=== PATIENT | male | born 1985 | race Caucasian/White ===

== ENCOUNTER 2016-09-27 11:26 | Inpatient (IN) | payer MEDICAID, OTHER ==
[~2016-09-27] VITALS: Ht 167.6 cm; Wt 124.5 kg
[~2016-09-27 11:26] MED LIST: ABIL10TA; ABIL15TA PO; ABIL2TAB; COGE1INJ; KLON0.5T; KLON1TAB; PROZ20CA; PROZ40CA; RISPERDAL CONSTA; TRAZ50TA; WELL150T PO; ZYPR15TA; ZYPR5TAB
[2016-09-27] MEDS ORDERED: ABIL30TA PO (11:39)
[2016-09-27] MEDS ORDERED: PARO20TA2 PO (11:39)
[2016-09-27] MEDS ORDERED: KEPP500T5 PO (11:39)
[2016-09-27 12:41] LABS: MEAN CORPUSCULAR HEMOGLOBIN 29.2 pg (27.0-33.0); MEAN CORPUSCULAR HGB CONC 33.8 g/dl (32.0-36.5); MEAN CORPUSCULAR VOLUME 86.4 fl (80.0-96.0); RED CELL DISTRIBUTION WIDTH 12.5 % (11.5-14.5); WHITE BLOOD COUNT 6.9 K/mm3 (4.0-10.0)
[2016-09-27 13:05] LABS: ALBUMIN 4.2 GM/DL (3.2-5.2); ALBUMIN/GLOBULIN RATIO 1.14 (1.00-1.93); ALKALINE PHOSPHATASE 125 U/L (45-117); ALT/SGPT 68 U/L (12-78); ANION GAP 11 MEQ/L (8-16); AST/SGOT 30 U/L (15-37); BILIRUBIN,DIRECT < 0.1 MG/DL (0.0-0.2); BILIRUBIN,TOTAL 0.4 MG/DL (0.2-1.0); BLOOD UREA NITROGEN 8 MG/DL (7-18); CALCIUM LEVEL 9.1 MG/DL (8.5-10.1); CARBON DIOXIDE LEVEL 26 MEQ/L (21-32); CHLORIDE LEVEL 104 MEQ/L (98-107); CREATININE FOR GFR 0.82 MG/DL (0.70-1.30); GLOMERULAR FILTRATION RATE > 60.0 (>60); GLUCOSE, FASTING 89 MG/DL (70-105); POTASSIUM SERUM 4.2 MEQ/L (3.5-5.1); SODIUM LEVEL 141 MEQ/L (136-145); TOTAL PROTEIN 7.9 GM/DL (6.4-8.2)
[2016-09-27 15:00] LABS: METHADONE URINE NEGATIVE (NEGATIVE)
[2016-09-27] MEDS ORDERED: KEPP1000 PO (16:00)
[2016-09-27 16:06] VITALS: BP 136/87
[2016-09-27] MEDS ORDERED: MAALOX 30 ML SUSP *UDC PO PRN (17:00)
[2016-09-27] MEDS ORDERED: traZODone 50 MG TAB PO PRN (17:00)
[2016-09-27] MEDS ORDERED: MOM 30ML SUSPENSION UDC PO PRN (17:00)
[2016-09-27] MEDS ORDERED: ACETAMINOPHEN TAB 650MG DOSE (2X325MG) PO PRN (17:00)
[2016-09-27] MEDS: levETIRAcetam **XR** 500 MG TABLET PO SCH (20:56)
[2016-09-28 06:33] VITALS: BP 135/76
[2016-09-28] MEDS: levETIRAcetam **XR** 500 MG TABLET PO SCH ×2 (09:23→21:00)
[2016-09-28] MEDS: ARIPiprazole 10 MG TAB PO SCH (09:23)
[2016-09-28] MEDS: PARoxetine 10MG TABLET PO SCH (09:24)
--- NOTE | 2016-09-28 13:52 | ECGEPIP ---
Stationary ECG Study [facility] Test Date: 2016-09-28 Pat Name: BRITTANI LOU Department: Room: [place] [address] Gender: M Production Leader: LUZ MRAIA : 1985 Requested By: Dana Erwin [facility] Order Number: [id number] Reading MD: Dickson Malloy Measurements Intervals [place] Rate: 81 P: 27 SD: 162 QRS: 46 QRSD: 105 T: 6 QT: 340 QTc: 395 Interpretive Statements Normal sinus rhythm at [address]/T-wave abnormalities. New from tracing in 08/22/11. Clinical correlation advised Electronically Signed On 09-28-2016 13:52:38 EDT by Dickson Malloy
[2016-09-28 18:00] VITALS: BP 142/73
--- NOTE | 2016-09-28 20:39 | HPE ---
DATE OF ADMISSION: 09/27/2016 Please refer to psychiatric history and evaluation for further details on this admission. This examination and history is intended for medical issues which may need treatment, followup or consult on this 30-year-old male. ALLERGIES: No known allergies. SOCIAL HISTORY: He is single, lives with his mother, stepfather and brother. EtOH: None. Smokes: None. Recreational drug use: He states none. PAST MEDICAL HISTORY: Schizophrenia. PAST SURGICAL HISTORY: 1. Plate in his head secondary to a traumatic injury. 2. He had open reduction with internal fixation and healed fracture of the lateral wall of the right orbit. LABORATORY STUDIES: CBC was normal. Electrolytes were normal. BUN and creatinine were 8 and 0.82. Toxicology was negative. HOME MEDICATIONS: - Abilify 30 mg by mouth daily - Keppra 1000 mg by mouth twice a day - Paxil 20 mg by mouth daily REVIEW OF SYSTEMS: Essentially negative. He had no complaints, was feeling well. PHYSICAL EXAMINATION: A 30-year-old obese cooperative male in no acute distress. Height 66 inches, weight 124 kg, body mass index (BMI) 44.3 kg. Temperature 98.6, pulse 95, respirations 16, blood pressure 136/87. Patient is alert and oriented times three. HEENT: Pupils equal and react to light. Extraocular muscles intact. Cornea and sclerae clear. Conjunctivae normal. No facial asymmetry. Pharynx, tongue, and gums pink and moist. Tongue is midline. NECK: Supple, without lymphadenopathy. No thyromegaly. No goiter. Carotids with a soft bruit CHEST: Clear to auscultation, without wheeze or retraction. HEART: Regular. ABDOMEN: Benign. Bowel sounds positive. /RECTAL: Not done. EXTREMITIES: Show equal strength. Full range of motion. No cyanosis, clubbing or edema. Negative Romberg study. Peripheral pulses even and palpable bilaterally. SKIN: Warm and dry. IMPRESSION/PLAN: 1. Psychiatric clearance for psychiatry. 2. No acute medical issues.
[2016-09-29 06:36] VITALS: BP 130/64
[2016-09-29] MEDS: PARoxetine 10MG TABLET PO SCH (07:43)
[2016-09-29] MEDS: ARIPiprazole 10 MG TAB PO SCH (07:43)
[2016-09-29] MEDS: levETIRAcetam **XR** 500 MG TABLET PO SCH ×2 (07:45→21:03)
--- NOTE | 2016-09-29 08:18 | MHHPE ---
DATE OF ADMISSION: 09/28/2016 Mr. Ortiz is a 31-year-old male who admitted himself based on the fact that he has not been feeling well. He feels he has been under stress at home. He has been arguing with his mother. He has felt a sense of dizziness and a sense of disorientation. He states that these are symptoms that precipitate or let him know that perhaps he may be having a break of schizophrenia. He states part of the stress has always been the fact that his uncle Dmitri, who is 60 years old, lives with the family and has been known to cause some stress in the past. He spent three years in their house. MEDICATIONS: The patient has been treated by Ms. Stringer at the [facility] in [facility] and been treated with Abilify 30 mg and Paxil 15 mg. He feels these medications have been adequate. He has not had any visual or auditory hallucinations with this treatment. NEUROLOGICAL HISTORY: He has had a long history of seizures, clonic tonic, as well as partial seizures since age 2. He is presently on Keppra and states that his seizures are controlled. He has been taking his medications faithfully and has been out of the hospital for five years. He has rated his mood yesterday as less than today and it is improving. PAST MEDICATIONS: He has used Zyprexa, Klonopin and Neurontin. EDUCATION: He has a college education of some years at [employer]. PSYCHIATRIC HISTORY: The patient states that since his early 20s he has had psychiatric problems; but when he was younger, he was known to have learning problems. Medical history has been positive for seizures. LEGAL HISTORY: Negative. DRUG HISTORY: Negative. ALCOHOL HISTORY: Negative. He presently is denying hallucinations or delusions, obsessions, compulsions and phobias. He has expressed some anxiety and depression. His eye contact is good. His appearance is appropriate. His speech is of normal volume and articulation. Affect is bright. His memory is good. Orientation is full in three spheres. No loose association. He denies suicidal or homicidal ideation and judgment is good. IMPRESSION: Chronic schizophrenia. PLAN: Will observe the patient to see if any medication changes are needed and may recommend as per the patient's request the possibility of a temporary living situation.
[2016-09-29 18:00] VITALS: BP 148/84
--- NOTE | 2016-09-30 03:24 | IPN ---
DATE: 09/27/2016 Rakesh Ortiz was seen by me today. He continued to perform rather excellent card tricks for me. His mood was good. His affect was bright. We agree with him that his home environment is too stressful and cause him to recurrence. He does not see a need for an increase in medication today. MENTAL STATUS EXAMINATION: His appearance is appropriate. Eye contact is good. His speech is of normal volume. Mood is good. Affect is pleasant. He has not yet developed hallucinations or delusions, but knows when he is about to, which initiated this admission. Memory is good. Orientation is in three spheres. He has no loose associations and he is presently denying suicidal or homicidal ideation, but has still continued paranoia and judgment is fair. ASSESSMENT: The patient is chronic schizophrenic, recurrent and placement to a different environment will be initiated. Presently, the patient is on Abilify 30 mg by mouth daily and Paxil 15 mg daily. I will increase his Paxil to 20 mg based on his severe anxiety.
[2016-09-30 06:26] VITALS: BP 111/58
[2016-09-30] MEDS: ARIPiprazole 10 MG TAB PO SCH (09:39)
[2016-09-30] MEDS: PARoxetine 20 MG TAB PO SCH (09:39)
[2016-09-30] MEDS: levETIRAcetam **XR** 500 MG TABLET PO SCH ×2 (09:39→20:03)
--- NOTE | 2016-09-30 11:01 | IPN ---
DATE: 09/30/2016 Rakesh Ortiz is seen by me today. Continues to perform card tricks. His mood is good. His affect is bright. He wanted an opinion on whether he was correct to seek independent placement. He said he could do it if "someone looked in on me". He continued to report that his home environment was too stressful and caused him to worry about recurrence. He does not see a need for increased medication today. MENTAL STATUS EXAMINATION: His appearance is appropriate. His eye contact was good. His speech is of normal volume. His mood is good. His affect is pleasant. He has not yet developed hallucinations or delusions but knows when he is about to which initiated this admission. His memory is good. He continues oriented in free spirits. He has no loose associations and is presently denying suicidal or homicidal ideation. His judgment is fair with some continued paranoia. ASSESSMENT: Patient is chronic schizophrenic and placement to different environment will be initiated. Patient is presently on Abilify 30 mg by mouth daily and Paxil 15 mg daily. We will increase his Paxil to 20 mg based on his anxiety. DIAGNOSIS: Chronic schizophrenia, recurrent. MTDD
[2016-09-30 18:00] VITALS: BP 116/54
[2016-10-01 06:26] VITALS: BP 136/61
[2016-10-01] MEDS: ARIPiprazole 10 MG TAB PO SCH (08:48)
[2016-10-01] MEDS: levETIRAcetam **XR** 500 MG TABLET PO SCH ×2 (08:48→21:27)
[2016-10-01] MEDS: PARoxetine 20 MG TAB PO SCH (08:48)
--- NOTE | 2016-10-01 13:53 | IPN ---
DATE OF SERVICE: 10/01/2016 Rakesh Ortiz is a chronic schizophrenic who was on the verge of a recurrence of his psychosis. He has had some improvement in being on the unit, and it is our opinion, along with him, that perhaps he needs to live in less stressful environment. Discharge planning will be discussing this with his family. He has reported that his home environment is too stressful, and it may cause him a recurrence. MENTAL STATUS EXAMINATION: His appearance is appropriate. His eye contact was good. His speech was of normal volume. His mood was good. His affect was pleasant. He is not presently hallucinating or delusional but knows when that is possible and thinks that it is due to the stress at home. His memory is good. He continues oriented in three spheres. He has no loose association and is presently denying suicidal or homicidal ideation. His judgment is fair with some continued paranoia. ASSESSMENT: The patient is chronic schizophrenic and discussion of placement to different environment will be initiated. The patient is presently on Abilify 30 mg by mouth and Paxil 15 mg daily.
[2016-10-01 18:00] VITALS: BP 136/73
[2016-10-02 06:11] VITALS: BP 114/69
[2016-10-02] MEDS: PARoxetine 20 MG TAB PO SCH (08:32)
[2016-10-02] MEDS: ARIPiprazole 10 MG TAB PO SCH (08:32)
[2016-10-02] MEDS: levETIRAcetam **XR** 500 MG TABLET PO SCH ×2 (08:32→20:48)
--- NOTE | 2016-10-02 08:49 | IPN ---
DATE: 10/02/2016 Mr. Ortiz was seen today. His mood is fair. Affect pleasant. Patient has met with discharge planning to review the possibility of living independently. I will be discussing discharge planning whether in fact they have also spoken with the family. Patient is a chronic schizophrenic who was under stress and was beginning to feel symptoms of relapse. Those feelings were a sense of disorientation and confusion. MENTAL STATUS EXAMINATION: Patient had somewhat stuttered speech. Thought processes were normal. There are no loose associations. He had been feeling prodromal symptoms of psychosis. Judgment and insight were good. Patient was fully oriented with no difficulties with recent and remote memory. Attention and concentration were good. Language demonstrated no abnormalities. He had full fund of knowledge and mood was fair. Affect was neutral. DIAGNOSIS: Chronic schizophrenia. PLAN: Continue medication and seek independent living. ESTEBAN
[2016-10-02 18:24] VITALS: BP 133/76
[2016-10-03 06:27] VITALS: BP 148/75
[2016-10-03] MEDS: PARoxetine 20 MG TAB PO SCH (08:29)
[2016-10-03] MEDS: ARIPiprazole 10 MG TAB PO SCH (08:29)
[2016-10-03] MEDS: levETIRAcetam **XR** 500 MG TABLET PO SCH ×2 (08:29→20:23)
--- NOTE | 2016-10-03 15:18 | IPN ---
DATE: 10/03/2016 Mr. Ortiz was seen today. His mood is fair. Affect pleasant. The patient will be meeting with family and having a referral to Transitional Living concerning him living independently. The patient is chronic schizophrenic who is under stress due to living environment at home and was beginning to feel symptoms of relapse. He had felt disoriented and confused. MENTAL STATUS EXAM: The patient has somewhat stuttered speech. Thought process was normal. No loose associations were noted. Prodromal symptoms of psychosis have relieved. Judgment and insight are good. The patient is fully oriented. No difficulty with recent or remote memory. Concentration good. Language demonstrated no abnormalities. He had full fund of knowledge. His mood was fair. His affect was neutral. MEDICATIONS: His present medication are paroxetine HCL 20 mg and Abilify 30 mg daily. DIAGNOSIS: Chronic schizophrenia. PLAN: Discharge to home with referrals for independent living.
[2016-10-03 18:00] VITALS: BP 135/65
[2016-10-03] MEDS ORDERED: PARO20TA2 PO (18:59)
[2016-10-03] MEDS ORDERED: ARIP10TAB PO (18:59)
[2016-10-03] MEDS ORDERED: TRAZO50TA PO (18:59)
[2016-10-04 06:15] VITALS: BP 131/87
[2016-10-04] MEDS: ARIPiprazole 10 MG TAB PO SCH (08:08)
[2016-10-04] MEDS: PARoxetine 20 MG TAB PO SCH (08:08)
[2016-10-04] MEDS: levETIRAcetam **XR** 500 MG TABLET PO SCH (08:08)
--- NOTE | 2016-10-04 10:11 | MHDS ---
DATE OF ADMISSION: 09/27/2016 DATE OF DISCHARGE: Mr. Ortiz is a 31-year-old male who admitted himself based on the fact that he has not been feeling well. He feels that he has been under stress at home. He has been arguing with his mother and his Uncle Dmitri, who lives at home. The patient has a history of chronic schizophrenia and was able to identify what he considered a prodromal symptoms to his having a psychotic break. He felt a sense of dizziness, a sense of disorientation. He felt that these were symptoms that precipitate or let him know that he may be having a recurrence of schizophrenia symptoms. He states that part of his stress has always been the fact that Uncle Dmitri, who is 60 years old lives with his family and this causes stress in the house. Uncle Dmitri was supposed to leave and has not. MEDICATIONS: The patient has been treated by Mrs. RennerQueen in the [facility] and has been treated with Abilify 30 mg and Paxil 15 mg. The patient feels that these medications have been adequate. He is not presently having visual or auditory hallucinations. Neurological history, he has a long history of seizures, clonic and tonic, as well as partial seizures since age 2. He is presently on Keppra and states that his seizures are controlled. He has been taking his medications faithfully and has been out of the hospital for 5 years. He rated his mood yesterday as low at 3 to 4 out of 10. In the past, he has used Zyprexa, Klonopin, and Neurontin. He has a college education with some years at [employer]. PSYCHIATRIC HISTORY: The patient states that since his early 20s he had psychiatric problems and had learning problems when he was younger. MEDICAL HISTORY: Positive for seizures. LEGAL HISTORY: Negative. DRUG HISTORY: Negative. ALCOHOL HISTORY: Negative. The patient was seen on 09/27/2016 and continued to perform card tricks. His mood seemed to improve and we agreed that if he felt that his home environment was too stressful that a referral to Transitional Living should be part of his treatment plan. On 09/30/2016, the patient stated that he felt that he could live in independent living if someone looked in on him. He saw no need for increased medication at that time. Discharge planning arranged a family meeting. He continued to have fair mood with a pleasant affect, and his medications continued at Abilify 30 mg. I increased his Paxil to 20 mg due to his anxiety from his usual 15 mg. His CBC was within normal range. There were no significant abnormalities in his serum chemistry. His toxicology screen was negative. DISCHARGE PLAN: He will be discharged to home with followup at [facility]. DISCHARGE DIAGNOSIS: Chronic schizophrenia. He will be followed up at the [facility].
== END 2016-10-04 12:10 | disposition home or self-care (01) | DRG 750 ==
LOC: M ED 13:20 → M ED INP 15:18 → M PSY 16:00
PROVIDERS: ADMIT Psychiatry & Neurology Child & Adolescent Psychiatry; ATTEND Psychiatry & Neurology Child & Adolescent Psychiatry
DX: F20.5 Residual schizophrenia (principal); Z79.899 Other long term (current) drug therapy; E66.9 Obesity, unspecified; Z68.41 Body mass index [BMI] 40.0-44.9, adult

== ENCOUNTER → 2016-11-21 | Outpatient (REF) | payer OTHER ==
[~2016-11-21] MED LIST changes: +ABIL30TA PO; +ARIP10TAB PO; +KEPP1000 PO; +KEPP500T5 PO; +PARO20TA3 PO; +TRAZO50TA PO
== END ==
LOC: M LABDRAWC 16:15
PROVIDERS: ATTEND Physician Assistant Medical
DX: G40.909 Epilepsy, unspecified, not intractable, without status epilepticus (principal)

== ENCOUNTER → 2017-07-24 | Outpatient (REF) | payer OTHER, MEDICAID ==
[2017-07-28 14:11] LABS: LEVETIRACETAM (KEPPRA) 30.6 ug/mL (10.0-40.0)
== END ==
LOC: M LABDRAWC 18:29
DX: G40.909 Epilepsy, unspecified, not intractable, without status epilepticus (principal)

== ENCOUNTER → 2017-12-16 | Outpatient (REF) | payer OTHER, MEDICAID ==
[2017-12-20 00:09] LABS: LEVETIRACETAM (KEPPRA) 26.4 ug/mL (10.0-40.0)
== END ==
LOC: M LABDRAWC 17:32
DX: R56.9 Unspecified convulsions (principal)
CPT/HCPCS: 36415

== ENCOUNTER → 2018-03-23 | Outpatient (REF) | payer OTHER, MEDICAID ==
[2018-03-23 20:50] LABS: TOTAL 25(OH) VITAMIN D 24.6 NG/ML (30.0-100.0)
[2018-03-23 23:16] LABS: ALBUMIN 4.3 GM/DL (3.2-5.2); ANION GAP 12 MEQ/L (8-16); BLOOD UREA NITROGEN 7 MG/DL (7-18); CALCIUM LEVEL 9.2 MG/DL (8.5-10.1); CARBON DIOXIDE LEVEL 23 MEQ/L (21-32); CHLORIDE LEVEL 104 MEQ/L (98-107); CREATININE FOR GFR 0.93 MG/DL (0.70-1.30); GLOMERULAR FILTRATION RATE > 60.0 (>60); GLUCOSE, FASTING 101 MG/DL (70-100); PHOSPHORUS LEVEL 2.7 MG/DL (2.5-4.9); POTASSIUM SERUM 4.1 MEQ/L (3.5-5.1); SODIUM LEVEL 139 MEQ/L (136-145); THYROXINE (T4) 7.8 UG/DL (4.5-12.0); TRIGLYCERIDES LEVEL 225 MG/DL (<150)
[2018-03-24 00:54] LABS: CHOLESTEROL LEVEL 214 MG/DL (<200); CHOLESTEROL RISK RATIO 5.219 (<5); HDL CHOLESTEROL 41 MG/DL (>40); NON-HDL-C 173 MG/DL
[2018-03-24 00:55] LABS: LDL CHOLESTEROL 128 MG/DL (<100)
[2018-03-24 01:37] LABS: ESTIMATED AVERAGE GLUCOSE 105 MG/DL (60-110); HEMOGLOBIN A1c 5.3 %
== END ==
LOC: M LABDRAWC 17:53
DX: Z51.81 Encounter for therapeutic drug level monitoring (principal); Z79.899 Other long term (current) drug therapy; E55.9 Vitamin D deficiency, unspecified; E03.3 Postinfectious hypothyroidism
CPT/HCPCS: 84443

== ENCOUNTER → 2018-06-11 | Outpatient (REF) | payer OTHER, MEDICAID ==
[2018-06-17 00:07] LABS: LEVETIRACETAM (KEPPRA) 20.9 ug/mL (10.0-40.0)
== END ==
LOC: M LABDRAWC 16:14
DX: R56.9 Unspecified convulsions (principal)
CPT/HCPCS: 80180

== ENCOUNTER → 2019-02-16 | Outpatient (REF) | payer OTHER, MEDICAID ==
[~2019-02-16] MED LIST changes: -ABIL30TA PO; +ABIL30TA4 PO; -ARIP10TAB PO; +ARIP1TAB PO; -KEPP1000 PO; +KEPP10002 PO; +KEPP500T13 PO; -KEPP500T5 PO; +TRAZ1TAB10 PO; -TRAZO50TA PO
[2019-02-16 16:55] LABS: CHOLESTEROL RISK RATIO 5.025 (<5)
[2019-02-16 17:57] LABS: HEMOGLOBIN A1c 5.8 %
== END ==
LOC: M LABDRAWC 16:05
PROVIDERS: ATTEND Nurse Practitioner Psychiatric/Mental Health
DX: Z79.899 Other long term (current) drug therapy (principal)

== ENCOUNTER → 2019-08-11 | Outpatient (REF) | payer OTHER, MEDICAID | LOC: M LABDRAWC 17:19 | PROVIDERS: ATTEND Physician Assistant Medical | DX: R56.9 Unspecified convulsions (principal) ==

== ENCOUNTER → 2019-12-21 | Outpatient (REF) | payer OTHER | LOC: M LABDRAWC 16:16 | PROVIDERS: ATTEND Physician Assistant Medical | DX: G40.909 Epilepsy, unspecified, not intractable, without status epilepticus (principal) ==

== ENCOUNTER → 2020-06-01 | Outpatient (REF) | payer MEDICAID ==
[2020-06-01 16:14] LABS: ALBUMIN 4.2 GM/DL (3.2-5.2); ALT/SGPT 96 U/L (12-78); BILIRUBIN,TOTAL 0.4 MG/DL (0.2-1.0); BLOOD UREA NITROGEN 7 MG/DL (7-18); CALCIUM LEVEL 9.3 MG/DL (8.5-10.1); CARBON DIOXIDE LEVEL 28 MEQ/L (21-32); CHLORIDE LEVEL 106 MEQ/L (98-107); CHOLESTEROL LEVEL 144 MG/DL (<200); CREATININE FOR GFR 0.93 MG/DL (0.70-1.30); GLOMERULAR FILTRATION RATE > 60.0 (>60); GLUCOSE, FASTING 87 MG/DL (70-100); HDL CHOLESTEROL 40 MG/DL (>40); LDL CHOLESTEROL 89 MG/DL (<100); NON-HDL-C 104 MG/DL; POTASSIUM SERUM 3.8 MEQ/L (3.5-5.1); SODIUM LEVEL 140 MEQ/L (136-145); TOTAL PROTEIN 7.5 GM/DL (6.4-8.2); TRIGLYCERIDES LEVEL 74 MG/DL (<150)
[2020-06-01 16:49] LABS: HEMOGLOBIN A1c 5.3 %
== END ==
LOC: M SFHCCLAY 10:02
PROVIDERS: ATTEND Family Medicine
DX: Z00.00 Encounter for general adult medical examination without abnormal findings (principal); R73.01 Impaired fasting glucose; Z79.899 Other long term (current) drug therapy; Z13.220 Encounter for screening for lipoid disorders

== ENCOUNTER → 2020-11-20 | Outpatient (REF) | payer MEDICAID, OTHER | LOC: M LABDRAWC 11:52 | PROVIDERS: ATTEND Physician Assistant Medical | DX: G40.909 Epilepsy, unspecified, not intractable, without status epilepticus (principal) ==

== ENCOUNTER → 2021-05-31 | Outpatient (REF) | payer OTHER | LOC: M LABDRAWC 15:30 | PROVIDERS: ATTEND Physician Assistant Medical | DX: G40.909 Epilepsy, unspecified, not intractable, without status epilepticus (principal) ==

== ENCOUNTER → 2021-07-03 | Outpatient (REF) | payer OTHER ==
[2021-07-03 16:11] LABS: BASO # 0.1 10^3/uL (0.0-0.2); BASO % 0.6 % (0.0-1.0); EOS # 0.2 10^3/uL (0.0-0.5); EOS % 1.8 % (0.0-3.0); HEMATOCRIT 49.3 % (42.0-52.0); LYMPH # 2.8 10^3/uL (1.5-5.0); MEAN CORPUSCULAR HEMOGLOBIN 29.1 pg (27.0-33.0); MEAN CORPUSCULAR HGB CONC 32.5 g/dl (32.0-36.5); MEAN CORPUSCULAR VOLUME 89.8 fl (80.0-96.0); MONO # 0.6 10^3/uL (0.0-0.8); MONO % 6.8 % (2.0-8.0); NEUTROPHILS # 4.6 10^3/uL (1.5-8.5); NEUTROPHILS % 56.3 % (36.0-66.0); PLATELET COUNT, AUTOMATED 330 10^3/uL (150-450); RED BLOOD COUNT 5.49 10^6/uL (4.30-6.10); WHITE BLOOD COUNT 8.2 10^3/uL (4.0-10.0)
[2021-07-03 16:46] LABS: ALBUMIN 4.2 GM/DL (3.2-5.2); ALT/SGPT 44 U/L (12-78); BILIRUBIN,TOTAL 0.4 MG/DL (0.2-1.0); BLOOD UREA NITROGEN 14 MG/DL (7-18); CALCIUM LEVEL 9.5 MG/DL (8.5-10.1); CARBON DIOXIDE LEVEL 31 MEQ/L (21-32); CHLORIDE LEVEL 105 MEQ/L (98-107); CREATININE FOR GFR 0.84 MG/DL (0.70-1.30); GLOMERULAR FILTRATION RATE > 60.0 (>60); GLUCOSE, FASTING 84 MG/DL (70-100); SODIUM LEVEL 138 MEQ/L (136-145); TOTAL PROTEIN 7.9 GM/DL (6.4-8.2)
== END ==
LOC: M LABDRAWC 15:46
PROVIDERS: ATTEND Physician Assistant Medical
DX: G40.909 Epilepsy, unspecified, not intractable, without status epilepticus (principal)

== ENCOUNTER → 2021-08-14 | Outpatient (REF) | payer OTHER | LOC: M SFHCCLAY 11:58 | PROVIDERS: ATTEND Family Medicine | DX: R73.03 Prediabetes (principal); Z79.899 Other long term (current) drug therapy ==

== ENCOUNTER → 2022-03-19 | Outpatient (REF) | payer OTHER ==
[2022-03-19 17:38] LABS: HEMATOCRIT 47.8 % (42.0-52.0); HEMOGLOBIN 15.6 g/dl (13.5-17.5); MEAN CORPUSCULAR HEMOGLOBIN 29.4 pg (27.0-33.0); MEAN CORPUSCULAR HGB CONC 32.6 g/dl (32.0-36.5); PLATELET COUNT, AUTOMATED 336 10^3/uL (150-450); RED BLOOD COUNT 5.31 10^6/uL (4.30-6.10); WHITE BLOOD COUNT 8.3 10^3/uL (4.0-10.0)
[2022-03-19 18:31] LABS: BLOOD UREA NITROGEN 9 MG/DL (7-18); CALCIUM LEVEL 9.2 MG/DL (8.5-10.1); CARBON DIOXIDE LEVEL 29 MEQ/L (21-32); CHLORIDE LEVEL 102 MEQ/L (98-107); CREATININE FOR GFR 0.82 MG/DL (0.70-1.30); GLOMERULAR FILTRATION RATE > 60.0 (>60); GLUCOSE, FASTING 82 MG/DL (70-100); POTASSIUM SERUM 4.4 MEQ/L (3.5-5.1); SODIUM LEVEL 135 MEQ/L (136-145)
== END ==
LOC: M SFHCCLAY 11:25
PROVIDERS: ATTEND Nurse Practitioner Family
DX: K92.1 Melena (principal)

== ENCOUNTER 2022-09-12 12:51 | Inpatient (IN) | payer MEDICAID, OTHER ==
[~2022-09-12] VITALS: Ht 167.6 cm; Wt 135.0 kg
[2022-09-12 14:31] LABS: HEMATOCRIT 47.5 % (42.0-52.0); HEMOGLOBIN 15.9 g/dl (13.5-17.5); MEAN CORPUSCULAR HEMOGLOBIN 29.5 pg (27.0-33.0); MEAN CORPUSCULAR HGB CONC 33.5 g/dl (32.0-36.5); MEAN CORPUSCULAR VOLUME 88.1 fl (80.0-96.0); PLATELET COUNT, AUTOMATED 341 10^3/uL (150-450); RED BLOOD COUNT 5.39 10^6/uL (4.30-6.10); WHITE BLOOD COUNT 10.7 10^3/uL (4.0-10.0)
[2022-09-12 15:01] LABS: ETHYL ALCOHOL (ETHANOL) 0.005 % (0.000-0.010)
[2022-09-12 15:02] LABS: ACETAMINOPHEN LEVEL < 2.0 UG/ML (10.0-20.0)
[2022-09-12 15:03] LABS: SALICYLATE LEVEL < 3.0 MG/DL (<30)
[2022-09-12 15:07] LABS: ALBUMIN 4.4 G/DL (3.2-5.2); ALKALINE PHOSPHATASE 98 U/L (46-116); ALT/SGPT 56 U/L (7.0-40); AST/SGOT 28 U/L (<34); BILIRUBIN,DIRECT 0.2 MG/DL (<0.4); BILIRUBIN,TOTAL 0.6 MG/DL (0.3-1.2); BLOOD UREA NITROGEN 9 MG/DL (9-23); CALCIUM LEVEL 9.3 MG/DL (8.5-10.1); CARBON DIOXIDE LEVEL 27 MMOL/L (20-31); CHLORIDE LEVEL 102 MMOL/L (98-107); CREATININE FOR GFR 0.69 MG/DL (0.70-1.30); GLOMERULAR FILTRATION RATE > 60.0 (>60); GLUCOSE, FASTING 95 MG/DL (60-100); POTASSIUM SERUM 4.6 MMOL/L (3.5-5.1); SODIUM LEVEL 139 MMOL/L (136-145); THYROID STIMULATING HORMONE 1.977 uIU/ML (0.55-4.78); TOTAL PROTEIN 7.9 G/DL (5.7-8.2)
[2022-09-12 15:15] LABS: LITHIUM LEVEL < 0.10 MMOL/L (0.60-1.20)
[2022-09-12 16:41] LABS: AMPHETAMINES LEVEL URINE NEGATIVE (NEGATIVE)
[2022-09-12 16:42] LABS: BARBITURATES URINE NEGATIVE (NEGATIVE); BENZODIAZEPINES URINE NEGATIVE (NEGATIVE); CANNABINOIDS URINE NEGATIVE (NEGATIVE); COCAINE METABOLITE URINE NEGATIVE (NEGATIVE); METHADONE URINE NEGATIVE (NEGATIVE); OPIATES URINE NEGATIVE (NEGATIVE); PHENCYCLIDINE URINE NEGATIVE (NEGATIVE)
[2022-09-12] MEDS ORDERED: ARIP1TAB PO (17:06)
[2022-09-12] MEDS ORDERED: PARO20TA4 PO (17:06)
[2022-09-12] MEDS ORDERED: HOME MED LIST COMPLETE! XX SCH (17:10)
[2022-09-12] MEDS ORDERED: ACETAMINOPHEN TAB 650MG DOSE (2X325MG) PO PRN (17:55)
[2022-09-12] MEDS ORDERED: MOM 30ML SUSPENSION UDC PO PRN (17:55)
[2022-09-12] MEDS ORDERED: MAALOX 30 ML SUSP *UDC PO PRN (17:55)
[2022-09-12] MEDS ORDERED: traZODone 50 MG TAB PO PRN (17:55)
[2022-09-12] MEDS ORDERED: OLANZapine ORAL DISINTEGRATING TAB 5MG PO PRN (17:55)
[2022-09-12] MEDS ORDERED: ARIPiprazole 10 MG TAB PO SCH (21:00)
[2022-09-12] MEDS: levETIRAcetam 250MG TABLET (KEPPRA) PO SCH (21:32)
[2022-09-13 06:37] VITALS: BP 141/90
[2022-09-13] MEDS: levETIRAcetam 250MG TABLET (KEPPRA) PO SCH ×2 (08:31→20:48)
[2022-09-13] MEDS ORDERED: PARoxetine 20MG TABLET PO SCH (09:00)
[2022-09-13] MEDS: busPIRone 5 MG TAB PO SCH ×2 (12:13→20:46)
[2022-09-13] MEDS: PALIPERIDONE 3MG ER TAB (INVEGA) PO SCH (12:13)
[2022-09-13 16:19] VITALS: BP 132/72
[2022-09-13] MEDS: ARIPiprazole 10 MG TAB PO SCH (20:47)
[2022-09-14 06:39] VITALS: BP 106/60
[2022-09-14 06:46] LABS: CHOLESTEROL RISK RATIO 5.33 (<5); LDL CHOLESTEROL 107.8 MG/DL (<100)
[2022-09-14] MEDS: busPIRone 5 MG TAB PO SCH ×2 (08:26→20:30)
[2022-09-14] MEDS: PILL CUTTER 1 EACH XX PRN (08:26)
[2022-09-14] MEDS: PALIPERIDONE 3MG ER TAB (INVEGA) PO SCH (08:26)
[2022-09-14] MEDS: levETIRAcetam 250MG TABLET (KEPPRA) PO SCH ×2 (08:26→20:30)
[2022-09-14] MEDS ORDERED: PALIPERIDONE 3MG ER TAB (INVEGA) PO SCH (09:00)
[2022-09-14 16:18] VITALS: BP 113/60
[2022-09-14] MEDS: ARIPiprazole 10 MG TAB PO SCH (20:30)
[2022-09-14] MEDS ORDERED: PARoxetine 20MG TABLET PO SCH (21:00)
[2022-09-15 06:35] VITALS: BP 123/69
[2022-09-15] MEDS: PILL CUTTER 1 EACH XX PRN (08:13)
[2022-09-15] MEDS: levETIRAcetam 250MG TABLET (KEPPRA) PO SCH ×2 (08:14→20:22)
[2022-09-15] MEDS: busPIRone 5 MG TAB PO SCH ×2 (08:14→20:22)
[2022-09-15] MEDS: PALIPERIDONE 3MG ER TAB (INVEGA) PO SCH (08:14)
[2022-09-15] MEDS ORDERED: PALIPERIDONE PAL 234MG/1.5ML INJ (INVEGA)(FREE PSY INPT ONLY) IM ONE (09:00)
[2022-09-15 16:02] VITALS: BP 146/72
[2022-09-15] MEDS: ARIPiprazole 10 MG TAB PO SCH (20:23)
[2022-09-15] MEDS: PARoxetine 10MG TABLET PO SCH (20:23)
[2022-09-16 06:59] VITALS: BP 133/74
[2022-09-16] MEDS: busPIRone 5 MG TAB PO SCH ×2 (09:23→20:18)
[2022-09-16] MEDS: PILL CUTTER 1 EACH XX PRN ×2 (09:24→20:18)
[2022-09-16] MEDS: levETIRAcetam 250MG TABLET (KEPPRA) PO SCH ×2 (09:25→20:18)
[2022-09-16 17:35] VITALS: BP 123/86
[2022-09-16] MEDS: PARoxetine 10MG TABLET PO SCH (20:18)
[2022-09-16] MEDS: ARIPiprazole 10 MG TAB PO SCH (20:18)
[2022-09-17 06:13] VITALS: BP 125/72
[2022-09-17] MEDS: PILL CUTTER 1 EACH XX PRN (08:20)
[2022-09-17] MEDS: busPIRone 5 MG TAB PO SCH ×2 (08:21→20:26)
[2022-09-17] MEDS: levETIRAcetam 250MG TABLET (KEPPRA) PO SCH ×2 (08:21→20:27)
[2022-09-17] MEDS: BENZTROPINE 1 MG TAB PO SCH ×2 (10:02→20:27)
[2022-09-17] MEDS: OMEGA-3 1000MG CAPSULE PO SCH ×2 (10:02→20:27)
[2022-09-17 18:25] VITALS: BP 127/73
[2022-09-17] MEDS: ARIPiprazole 10 MG TAB PO SCH (20:26)
[2022-09-17] MEDS: PARoxetine 10MG TABLET PO SCH (20:27)
[2022-09-18 06:21] VITALS: BP 119/59
[2022-09-18] MEDS: OMEGA-3 1000MG CAPSULE PO SCH (08:14)
[2022-09-18] MEDS: levETIRAcetam 250MG TABLET (KEPPRA) PO SCH (08:15)
[2022-09-18] MEDS: BENZTROPINE 1 MG TAB PO SCH (08:15)
[2022-09-18] MEDS: busPIRone 5 MG TAB PO SCH (08:15)
[2022-09-18] MEDS ORDERED: PALIPERIDONE PAL 156MG/1ML INJ(INVEGA)(FREE PSY INPT ONLY) IM ONE (09:00)
[2022-09-18] MEDS ORDERED: ABIL10TA9 PO (09:46)
[2022-09-18] MEDS ORDERED: BUSP5TA PO (09:46)
[2022-09-18] MEDS ORDERED: BENZ1TAB5 PO (09:46)
[2022-09-18] MEDS ORDERED: PARO5TAB PO (09:46)
[2022-09-18] MEDS ORDERED: FISH1CAP26 PO (09:46)
[2022-09-18] MEDS ORDERED: INVE156I IM (09:46)
== END 2022-09-18 11:42 | disposition home or self-care (01) | DRG 750 ==
LOC: M ED 12:51 → M ED INP 17:52 → M PSY 20:35
PROVIDERS: ADMIT Student in an Organized Health Care Education/Training Program; ATTEND Student in an Organized Health Care Education/Training Program
DX: F20.9 Schizophrenia, unspecified (principal); Z68.42 Body mass index [BMI] 45.0-49.9, adult; G40.909 Epilepsy, unspecified, not intractable, without status epilepticus; F79 Unspecified intellectual disabilities; E66.01 Morbid (severe) obesity due to excess calories; F84.9 Pervasive developmental disorder, unspecified; Z79.899 Other long term (current) drug therapy; R00.0 Tachycardia, unspecified

== ENCOUNTER → 2023-03-26 | Outpatient (REF) | payer OTHER ==
[~2023-03-26] MED LIST changes: +ABIL10TA9 PO; +BENZ1TAB5 PO; +BUSP5TA PO; +FISH1CAP26 PO; +INVE156I IM; +PARO20TA4 PO; +PARO5TAB PO
[2023-03-26 18:12] LABS: HEMOGLOBIN A1c 5.7 % (4.0-6.0)
[2023-03-26 18:24] LABS: ALBUMIN 4.1 G/DL (3.2-5.2); ALKALINE PHOSPHATASE 86 U/L (46-116); ALT/SGPT 37 U/L (7.0-40); AST/SGOT 11 U/L (<34); BILIRUBIN,TOTAL 0.4 MG/DL (0.3-1.2); BLOOD UREA NITROGEN 10 MG/DL (9-23); CALCIUM LEVEL 8.7 MG/DL (8.5-10.1); CARBON DIOXIDE LEVEL 25 MMOL/L (20-31); CHLORIDE LEVEL 102 MMOL/L (98-107); CHOLESTEROL LEVEL 210 MG/DL (<200); CHOLESTEROL RISK RATIO 5.01 (<5); CREATININE FOR GFR 0.74 MG/DL (0.70-1.30); GLOMERULAR FILTRATION RATE > 60.0 (>60); GLUCOSE, FASTING 129 MG/DL (60-100); HDL CHOLESTEROL 41.9 MG/DL (>40); LDL CHOLESTEROL 131.7 MG/DL (<100); NON-HDL-C 168.1 MG/DL; POTASSIUM SERUM 4.1 MMOL/L (3.5-5.1); SODIUM LEVEL 139 MMOL/L (136-145); TOTAL PROTEIN 7.5 G/DL (5.7-8.2); TRIGLYCERIDES LEVEL 182 MG/DL (<150)
== END ==
LOC: M SFHCCLAY 14:45
PROVIDERS: ATTEND Nurse Practitioner Family
DX: F20.9 Schizophrenia, unspecified (principal); G40.309 Generalized idiopathic epilepsy and epileptic syndromes, not intractable, without status epilepticus; R73.03 Prediabetes

== ENCOUNTER 2023-07-09 12:47 | Inpatient (IN) | payer MEDICAID, OTHER ==
[~2023-07-09] VITALS: Ht 167.6 cm; Wt 138.6 kg
[2023-07-09 14:05] LABS: HEMATOCRIT 45.4 % (42.0-52.0); HEMOGLOBIN 15.4 g/dl (13.5-17.5); MEAN CORPUSCULAR HEMOGLOBIN 29.1 pg (27.0-33.0); MEAN CORPUSCULAR HGB CONC 33.9 g/dl (32.0-36.5); MEAN CORPUSCULAR VOLUME 85.8 fl (80.0-96.0); PLATELET COUNT, AUTOMATED 358 10^3/uL (150-450); RED BLOOD COUNT 5.29 10^6/uL (4.30-6.10); WHITE BLOOD COUNT 8.2 10^3/uL (4.0-10.0)
[2023-07-09] MEDS ORDERED: MED REC IN PROGRESS XX SCH (14:10)
[2023-07-09 14:32] LABS: ETHYL ALCOHOL (ETHANOL) 0.004 % (0.000-0.010)
[2023-07-09 14:34] LABS: ALBUMIN 4.1 G/DL (3.2-5.2); ALKALINE PHOSPHATASE 92 U/L (46-116); ALT/SGPT 67 U/L (7.0-40); AST/SGOT 28 U/L (<34); BILIRUBIN,DIRECT < 0.1 MG/DL (<0.4); BILIRUBIN,TOTAL 0.3 MG/DL (0.3-1.2); BLOOD UREA NITROGEN 11 MG/DL (9-23); CALCIUM LEVEL 9.7 MG/DL (8.5-10.1); CARBON DIOXIDE LEVEL 27 MMOL/L (20-31); CHLORIDE LEVEL 102 MMOL/L (98-107); CREATININE FOR GFR 0.67 MG/DL (0.70-1.30); GLOMERULAR FILTRATION RATE > 60.0 (>60); GLUCOSE, FASTING 99 MG/DL (60-100); POTASSIUM SERUM 4.3 MMOL/L (3.5-5.1); SALICYLATE LEVEL < 3.0 MG/DL (<30); SODIUM LEVEL 136 MMOL/L (136-145); TOTAL PROTEIN 7.5 G/DL (5.7-8.2)
[2023-07-09 14:37] LABS: THYROID STIMULATING HORMONE 2.255 uIU/ML (0.55-4.78)
[2023-07-09 14:44] LABS: AMPHETAMINES LEVEL URINE NEGATIVE (NEGATIVE)
[2023-07-09 14:46] LABS: BARBITURATES URINE NEGATIVE (NEGATIVE); BENZODIAZEPINES URINE NEGATIVE (NEGATIVE); COCAINE METABOLITE URINE NEGATIVE (NEGATIVE); METHADONE URINE NEGATIVE (NEGATIVE); OPIATES URINE NEGATIVE (NEGATIVE); PHENCYCLIDINE URINE NEGATIVE (NEGATIVE)
[2023-07-09 14:47] LABS: CANNABINOIDS URINE NEGATIVE (NEGATIVE)
[2023-07-09] MEDS ORDERED: diphenhydrAMINE 25MG CAP PO PRN (15:20)
[2023-07-09] MEDS ORDERED: OLANZapine ORAL DISINTEGRATING TAB 5MG PO PRN (15:20)
[2023-07-09] MEDS ORDERED: MOM 30ML SUSPENSION UDC PO PRN (15:20)
[2023-07-09] MEDS ORDERED: IBUPROFEN 400MG TAB PO PRN (15:20)
[2023-07-09] MEDS ORDERED: MAALOX 30 ML SUSP *UDC PO PRN (15:20)
[2023-07-09] MEDS ORDERED: ACETAMINOPHEN TAB 650MG DOSE (2X325MG) PO PRN (15:20)
[2023-07-09] MEDS ORDERED: INVE1INJ IM (15:26)
[2023-07-09] MEDS ORDERED: BUSP1TAB PO (15:26)
[2023-07-09] MEDS ORDERED: PARO30TA4 PO (15:26)
[2023-07-09] MEDS ORDERED: HOME MED LIST COMPLETE! XX SCH (15:30)
[2023-07-09 22:17] VITALS: BP 140/81; TEMP 97.5; O2SAT 95
[2023-07-09] MEDS: traZODone 50 MG TAB PO PRN (23:09)
[2023-07-09] MEDS: levETIRAcetam 250MG TABLET (KEPPRA) PO SCH (23:09)
[2023-07-10 06:33] VITALS: BP 103/56; TEMP 98.6; O2SAT 100
[2023-07-10] MEDS: levETIRAcetam 250MG TABLET (KEPPRA) PO SCH ×2 (09:04→20:59)
[2023-07-10] MEDS: busPIRone 5 MG TAB PO SCH ×2 (09:38→20:59)
[2023-07-10] MEDS: PARoxetine 10MG TABLET PO SCH (09:38)
[2023-07-10] MEDS: BENZTROPINE 1 MG TAB PO SCH ×2 (09:38→20:59)
[2023-07-10] MEDS ORDERED: INFLUENZA QUADRIVALENT PF VACCINE 0.5ML SYRINGE IM.IMMUN ONE (12:00)
[2023-07-10 17:52] VITALS: BP 128/58; TEMP 97.5; O2SAT 94
[2023-07-11 06:27] VITALS: BP 129/68; TEMP 97.3; O2SAT 95
[2023-07-11] MEDS: levETIRAcetam 250MG TABLET (KEPPRA) PO SCH ×2 (08:21→20:30)
[2023-07-11] MEDS: PILL CUTTER 1 EACH XX PRN ×2 (08:21→20:30)
[2023-07-11] MEDS: PARoxetine 10MG TABLET PO SCH (08:22)
[2023-07-11] MEDS: busPIRone 5 MG TAB PO SCH ×2 (08:22→20:30)
[2023-07-11] MEDS: BENZTROPINE 1 MG TAB PO SCH ×2 (08:22→20:30)
[2023-07-11 17:10] VITALS: BP 145/77; TEMP 97.4
[2023-07-12 06:32] VITALS: BP 104/52; TEMP 97.4
[2023-07-12 08:16] LABS: CHOLESTEROL RISK RATIO 3.76 (<5); LDL CHOLESTEROL 119.4 MG/DL (<100)
[2023-07-12] MEDS: busPIRone 5 MG TAB PO SCH ×2 (09:13→20:13)
[2023-07-12] MEDS: levETIRAcetam 250MG TABLET (KEPPRA) PO SCH ×2 (09:17→20:13)
[2023-07-12] MEDS: PARoxetine 10MG TABLET PO SCH (09:17)
[2023-07-12] MEDS: BENZTROPINE 1 MG TAB PO SCH ×2 (09:18→20:13)
[2023-07-12 17:34] VITALS: BP 131/93; TEMP 96.8
[2023-07-12] MEDS: PILL CUTTER 1 EACH XX PRN (20:12)
[2023-07-12] MEDS: traZODone 50 MG TAB PO PRN (20:13)
[2023-07-13 06:28] VITALS: BP 136/86; TEMP 97.9; O2SAT 98
[2023-07-13] MEDS: BENZTROPINE 1 MG TAB PO SCH ×2 (08:09→20:25)
[2023-07-13] MEDS: busPIRone 5 MG TAB PO SCH ×2 (08:09→20:25)
[2023-07-13] MEDS: PARoxetine 10MG TABLET PO SCH (08:09)
[2023-07-13] MEDS: levETIRAcetam 250MG TABLET (KEPPRA) PO SCH ×2 (08:09→20:24)
[2023-07-13 17:44] VITALS: BP 148/70; TEMP 96.9
[2023-07-13] MEDS: PILL CUTTER 1 EACH XX PRN (20:24)
[2023-07-13] MEDS: traZODone 50 MG TAB PO PRN (20:25)
[2023-07-14 06:06] VITALS: BP 111/69; TEMP 97.8; O2SAT 96
[2023-07-14] MEDS: busPIRone 5 MG TAB PO SCH ×2 (08:14→20:12)
[2023-07-14] MEDS: levETIRAcetam 250MG TABLET (KEPPRA) PO SCH ×2 (08:14→20:12)
[2023-07-14] MEDS: BENZTROPINE 1 MG TAB PO SCH ×2 (08:15→20:12)
[2023-07-14] MEDS: PARoxetine 10MG TABLET PO SCH (08:15)
[2023-07-14 16:09] VITALS: BP 129/60; TEMP 97.7; O2SAT 96
[2023-07-14] MEDS: traZODone 50 MG TAB PO PRN (20:49)
[2023-07-15 06:30] VITALS: BP 134/87; TEMP 98.2; O2SAT 95
[2023-07-15] MEDS: PARoxetine 10MG TABLET PO SCH (08:48)
[2023-07-15] MEDS: busPIRone 5 MG TAB PO SCH (08:48)
[2023-07-15] MEDS: BENZTROPINE 1 MG TAB PO SCH (08:49)
[2023-07-15] MEDS: levETIRAcetam 250MG TABLET (KEPPRA) PO SCH (08:49)
== END 2023-07-15 11:31 | disposition home or self-care (01) | DRG 750 ==
LOC: M ED 12:47 → M ED INP 15:18 → M PSY 21:50
PROVIDERS: ADMIT Student in an Organized Health Care Education/Training Program; ATTEND Student in an Organized Health Care Education/Training Program
DX: F20.9 Schizophrenia, unspecified (principal); G40.409 Other generalized epilepsy and epileptic syndromes, not intractable, without status epilepticus; F79 Unspecified intellectual disabilities; F41.9 Anxiety disorder, unspecified; Z79.899 Other long term (current) drug therapy

== ENCOUNTER → 2024-03-02 | Outpatient (REF) | payer OTHER ==
[~2024-03-02] MED LIST changes: +BUSP1TAB PO; +INVE1INJ IM; +PARO30TA4 PO
[2024-03-02 17:41] LABS: HEMOGLOBIN A1c 5.3 % (4.0-6.0)
[2024-03-02 17:53] LABS: ALBUMIN 4.3 G/DL (3.2-5.2); ALKALINE PHOSPHATASE 97 U/L (46-116); ALT/SGPT 35 U/L (7.0-40); AST/SGOT 12 U/L (<34); BILIRUBIN,TOTAL 0.3 MG/DL (0.3-1.2); BLOOD UREA NITROGEN 11 MG/DL (9-23); CALCIUM LEVEL 9.4 MG/DL (8.5-10.1); CARBON DIOXIDE LEVEL 28 MMOL/L (20-31); CHLORIDE LEVEL 105 MMOL/L (98-107); CHOLESTEROL LEVEL 186 MG/DL (<200); CHOLESTEROL RISK RATIO 5.77 (<5); GLOMERULAR FILTRATION RATE > 60.0 (>60); GLUCOSE, FASTING 97 MG/DL (60-100); HDL CHOLESTEROL 32.2 MG/DL (>40); LDL CHOLESTEROL 108.6 MG/DL (<100); NON-HDL-C 153.8 MG/DL; POTASSIUM SERUM 4.2 MMOL/L (3.5-5.1); SODIUM LEVEL 140 MMOL/L (136-145); TOTAL PROTEIN 8.1 G/DL (5.7-8.2); TRIGLYCERIDES LEVEL 226 MG/DL (<150)
== END ==
LOC: M SFHCCLAY 14:09
PROVIDERS: ATTEND Nurse Practitioner Family
DX: R73.03 Prediabetes (principal); E66.01 Morbid (severe) obesity due to excess calories; F20.9 Schizophrenia, unspecified

== ENCOUNTER → 2025-04-12 | Outpatient (REF) | payer OTHER ==
[~2025-04-12] MED LIST changes: +INVE234I IM; +INVE3TAB2 PO; +LAMO100T3 PO; +OLAN1TAB16 PO; +TRAZ-252 PO
[2025-04-12 18:33] LABS: BASO # 0.1 10^3/uL (0.0-0.2); BASO % 0.6 % (0.0-1.0); EOS # 0.2 10^3/uL (0.0-0.5); EOS % 1.7 % (0.0-3.0); LYMPH # 2.6 10^3/uL (1.5-5.0); LYMPH % 30.1 % (24.0-44.0); MONO # 0.8 10^3/uL (0.0-0.8); MONO % 8.9 % (2.0-8.0); NEUTROPHILS # 5.1 10^3/uL (1.5-8.5); NEUTROPHILS % 58.4 % (36.0-66.0); PLATELET COUNT, AUTOMATED 373 10^3/uL (150-450)
[2025-04-12 18:52] LABS: ESTIMATED AVERAGE GLUCOSE 120.0 MG/DL (60-110)
[2025-04-12 18:55] LABS: ALT/SGPT 35 U/L (7.0-40); AST/SGOT 17 U/L (<34); CALCIUM LEVEL 8.9 MG/DL (8.5-10.1); CARBON DIOXIDE LEVEL 28 MMOL/L (20-31); CHLORIDE LEVEL 102 MMOL/L (98-107); CHOLESTEROL LEVEL 214 MG/DL (<200); CHOLESTEROL RISK RATIO 5.27 (<5); CREATININE FOR GFR 0.76 MG/DL (0.70-1.30); GLOMERULAR FILTRATION RATE > 90.0 (>60); LDL CHOLESTEROL 137.0 MG/DL (<100); NON-HDL-C 173.4 MG/DL; POTASSIUM SERUM 4.1 MMOL/L (3.5-5.1); SODIUM LEVEL 137 MMOL/L (136-145); TRIGLYCERIDES LEVEL 182 MG/DL (<150)
[2025-04-12 18:59] LABS: FREE T4 1.10 NG/DL (0.89-1.76)
== END ==
LOC: M SFHCCLAY 13:25
PROVIDERS: ATTEND Nurse Practitioner Family
DX: Z00.00 Encounter for general adult medical examination without abnormal findings (principal); F20.9 Schizophrenia, unspecified; E66.01 Morbid (severe) obesity due to excess calories; R73.03 Prediabetes

== ENCOUNTER 2025-05-06 10:42 | Inpatient (IN) | payer OTHER ==
[~2025-05-06] VITALS: Ht 167.6 cm; Wt 138.3 kg
[2025-05-06 11:58] LABS: PLATELET COUNT, AUTOMATED 365 10^3/uL (150-450)
[2025-05-06 12:28] LABS: AMPHETAMINES LEVEL URINE NEGATIVE (NEGATIVE); BARBITURATES URINE NEGATIVE (NEGATIVE); BENZODIAZEPINES URINE NEGATIVE (NEGATIVE); CANNABINOIDS URINE NEGATIVE (NEGATIVE); COCAINE METABOLITE URINE NEGATIVE (NEGATIVE); METHADONE URINE NEGATIVE (NEGATIVE); OPIATES URINE NEGATIVE (NEGATIVE); PHENCYCLIDINE URINE NEGATIVE (NEGATIVE)
[2025-05-06 12:29] LABS: ETHYL ALCOHOL (ETHANOL) < 0.003 % (0.000-0.010)
[2025-05-06 12:31] LABS: ALT/SGPT 35 U/L (7.0-40); AST/SGOT 19 U/L (<34); CALCIUM LEVEL 9.6 MG/DL (8.5-10.1); CARBON DIOXIDE LEVEL 24 MMOL/L (20-31); CHLORIDE LEVEL 104 MMOL/L (98-107); CREATININE FOR GFR 0.72 MG/DL (0.70-1.30); GLOMERULAR FILTRATION RATE > 90.0 (>60); POTASSIUM SERUM 4.5 MMOL/L (3.5-5.1); SALICYLATE LEVEL < 3.0 MG/DL (<30); SODIUM LEVEL 139 MMOL/L (136-145)
[2025-05-06] MEDS ORDERED: MAALOX 30 ML SUSP *UDC PO PRN (14:30)
[2025-05-06] MEDS ORDERED: MOM 30 ML SUSPENSION UDC PO PRN (14:30)
[2025-05-06] MEDS ORDERED: ACETAMINOPHEN 325 MG TAB PO PRN (14:30)
[2025-05-06] MEDS ORDERED: OLANZapine 5 MG TAB PO PRN (14:30)
[2025-05-06] MEDS ORDERED: HOME MED LIST COMPLETE! XX SCH (17:05)
[2025-05-06 17:44] VITALS: BP 142/83; TEMP 96.9; O2SAT 98
[2025-05-06] MEDS: NICOTINE 14 MG/24 HR TRANSDERMAL TD SCH (18:07)
[2025-05-06] MEDS: traZODone 50 MG TAB PO PRN (20:17)
[2025-05-06] MEDS: LORazepam 1 MG TAB PO PRN (20:17)
[2025-05-06] MEDS: HALOPERIDOL 5 MG TAB PO PRN (20:17)
[2025-05-07 06:26] VITALS: BP 141/100; TEMP 97.6; O2SAT 98
[2025-05-07 15:03] VITALS: BP 117/76; TEMP 97.4; O2SAT 96
[2025-05-07] MEDS: PALIPERIDONE 3MG ER TAB PO SCH (15:04)
[2025-05-08 06:23] VITALS: BP 139/94; TEMP 97.3; O2SAT 98
[2025-05-08 14:42] VITALS: BP 128/69; TEMP 98.3; O2SAT 97
[2025-05-09 06:29] VITALS: BP 126/78; TEMP 97.6; O2SAT 97
[2025-05-09 15:30] VITALS: BP 113/64; TEMP 97.8; O2SAT 96
[2025-05-09] MEDS: PALIPERIDONE PAL 234MG/1.5ML INJ (FREE PSY INPT ONLY) IM ONE (18:08)
[2025-05-10 06:43] VITALS: BP_SYST 135; BP_SYST 165; BP_DIAS 75; BP_DIAS 88; TEMP 97; O2SAT 93; O2SAT 98
[2025-05-10 15:08] VITALS: BP 121/82; TEMP 97.4; O2SAT 96
[2025-05-11 06:55] VITALS: BP 122/74; TEMP 97.3; O2SAT 94
[2025-05-11 15:27] VITALS: BP 121/61; TEMP 97.4; O2SAT 98
[2025-05-11] MEDS: IBUPROFEN 400 MG TAB PO PRN (15:40)
[2025-05-12 06:35] VITALS: BP 141/71; TEMP 97.4; O2SAT 93
[2025-05-12 15:47] VITALS: BP 142/83; TEMP 97; O2SAT 96
[2025-05-13 06:58] VITALS: BP 104/61; TEMP 97; O2SAT 98
[2025-05-13 14:48] VITALS: BP 145/83; TEMP 97.9; O2SAT 97
[2025-05-14 06:11] VITALS: BP 126/65; TEMP 98; O2SAT 97
[2025-05-14 15:58] VITALS: BP 122/67; TEMP 97.7; O2SAT 97
[2025-05-15 06:41] VITALS: BP 111/66; TEMP 97.6; O2SAT 95
[2025-05-15] MEDS: PALIPERIDONE PAL 156MG/1ML INJ (FREE PSY INPT ONLY) IM ONE (09:56)
[2025-05-15 15:56] VITALS: BP 130/72; TEMP 97.3; O2SAT 98
[2025-05-16 06:37] VITALS: BP 133/60; TEMP 98; O2SAT 94
[2025-05-16 15:16] VITALS: BP 161/89; TEMP 97.6; O2SAT 96
[2025-05-17 06:15] VITALS: BP 127/75; TEMP 97.6; O2SAT 99
[2025-05-17] MEDS ORDERED: PHAR25CA PO (08:23)
[2025-05-17] MEDS ORDERED: INVE234I IM (08:23)
[2025-05-17] MEDS ORDERED: TRAZ-252 PO (08:23)
[2025-05-17] MEDS ORDERED: PALI1TAB2 PO (08:23)
== END 2025-05-17 15:53 | disposition home or self-care (01) | DRG 750 ==
LOC: M ED 10:42 → M ED INP 14:26 → M PSY 17:44
PROVIDERS: ADMIT Internal Medicine; ATTEND Internal Medicine
DX: F25.0 Schizoaffective disorder, bipolar type (principal); F41.9 Anxiety disorder, unspecified; E66.01 Morbid (severe) obesity due to excess calories; Z87.820 Personal history of traumatic brain injury; Z91.148 Patient's other noncompliance with medication regimen for other reason; R45.851 Suicidal ideations